=== PATIENT | male | born 1985 | race Caucasian/White ===

== ENCOUNTER 2016-05-27 00:04 | Emergency (ER) | payer OTHER ==
[2016-05-27 00:16] VITALS: RESP 16; TEMP 98
--- NOTE | 2016-05-27 00:31 | ED ---
General Adult HPI - General Chief complaint: Upper Respiratory Infection Stated complaint: poss pneumonia Time Seen by Provider: 05/27/16 00:18 Source: patient, RN notes reviewed Mode of arrival: ambulatory - History of Present Illness Initial comments: 31-year-old male presents to emergency room chief complaint of cough cold runny nose like symptoms. Patient states she's been sick for the past few days. Patient states he has been working longer hours at work. Patient states the whole family was sick for about one week ago. Patient states that he has had pneumonia in the past starting to feel that way. Patient states he does have a little better shortness of breath and continues to have a productive cough with yellow sputum. Patient states he is not currently having any other symptoms. Patient denies any significant health history. Patient does admit to using a vaporized nicotine substances.Patient denies any recent fever, chills, chest pain, back pain, abdominal pain, nausea vomiting, numbness or tingling, dysuria or hematuria, constipation or diarrhea, headaches or visual changes, or any other current symptoms. - Related Data Previous Rx's Medication Instructions Recorded predniSONE 50 mg PO DAILY #5 tab 05/27/16 Review of Systems ROS Statement: Those systems with pertinent positive or pertinent negative responses have been documented in the HPI. ROS Other: All systems not noted in ROS Statement are negative. Past Medical History Past Medical History: No Reported History History of Any Multi-Drug Resistant Organisms: None Reported Past Surgical History: No Surgical Hx Reported Past Psychological History: No Psychological Hx Reported Smoking Status: Former smoker Past Alcohol Use History: Occasional Past Drug Use History: None Reported General Exam - General Exam Comments Initial Comments: General exam: Alert, active, comfortable in no apparent distress Head: Normocephalic Eyes: Normal reaction of pupils, equal size, normal range of extraocular motion Ears: normal external ear canals, pink tympanic membranes with normal cone of light Nose: clear with pink turbinates Throat: no erythema or exudates with normal sized tonsils Neck: no masses, no nuchal rigidity Chest: no chest wall deformity Lungs: equal air entry with no crackles or wheeze CVS: S1 and S2 normal with no audible mumurs, regular rhythm Abdomen: no hepatosplenomegaly, normal bowel sounds, no guarding or rigidity Spine: no scoliosis or deformity Skin: no rashes Neurological: No focal deficits, tone is normal in all 4 extremities Course Vital Signs 05/27/16 00:12 Temperature 98 F Pulse Rate 71 Respiratory 16 Rate Blood Pressure 149/74 O2 Sat by Pulse 99 Oximetry Medical Decision Making - Medical Decision Making 31-year-old male presents emergency Department with a chief complaint of cough cold runny nose like symptoms. This time chest x-ray shows no sign of pneumonia patient is negative informed. Stent patient's of rub respiratory infection. The stools patient steroids. We discussed return parameters and follow-up. Patient stated that he understood all questions were answered. He' ll be discharged. - Lab Data Lab Results 05/27/16 Range/Units 00:37 Influenza Type A RNA Not Detected (Not Detectd) Influenza Type B (PCR) Not Detected (Not Detectd) - Radiology Data Radiology results: report reviewed, image reviewed Disposition Clinical Impression: Upper respiratory infection Disposition: HOME SELF-CARE Condition: Stable Instructions: Upper Respiratory Infection (ED) Additional Instructions: Please use medication as discussed. Please follow up with family doctor if symptoms have not improved over the next two days. Please return to the emergency room if your symptoms increase or worsen or for any other concerns. Prescriptions: predniSONE 50 mg PO DAILY #5 tab Referrals: Latrice Locke MD [STAFF PHYSICIAN] - 1-2 days Time of Disposition: 01:19
--- NOTE | 2016-05-27 01:13 | XR ---
Chest Radiograph one view Comparison: None Available Findings: Heart size and mediastinal structures are within normal limits. Lungs are clear , No evidence of pleural disease or effusion. IMPRESSION: No evidence of active chest disease.
[2016-05-27] MEDS ORDERED: predniSONE 50 MG TAB PO STA (01:19)
[2016-05-27 01:26] VITALS: BP 128/76; PULSE 74
== END 2016-05-27 01:25 | disposition home or self-care (01) ==
LOC: EC 00:04
DX: J06.9 Acute upper respiratory infection, unspecified (principal); Z87.891 Personal history of nicotine dependence; Z87.01 Personal history of pneumonia (recurrent)
CPT/HCPCS: 87502; 71020; 99283; J7512

== ENCOUNTER → 2019-05-16 | Outpatient (CLI) | payer OTHER ==
--- NOTE | 2019-05-16 22:39 | ECHOS ---
STRESS ECHOCARDIOGRAM LUMASON: @@ Vial INDICATIONS: The patient is referred for exercise stress echo, he has chest pain. MEDICATIONS: None. BASELINE HEART RATE: 58 beats per minute. BASELINE BLOOD PRESSURE: 127/92 MAXIMUM HEART RATE: 165 MAXIMUM BLOOD PRESSURE: 172/69 85% MPHR: 160 100% MPHR: 188 METS: 12.1 MAXIMUM STAGE REACHED: 4 TOTAL EXERCISE TIME: 10.5 minutes. CLINICAL INFORMATION: Baseline heart rate 58 beats per minute. Baseline blood pressure 127/92 mmHg. Baseline 12-lead ECG showed normal sinus rhythm with normal cardiac intervals. The patient exercised on a Jhonny protocol for 10.5 minutes, achieving a peak heart rate of 165 beats per minute. There was no ECG evidence for ischemia. No arrhythmias were noted. Baseline 2D echo images showed normal LV size and systolic function without segmental wall motion abnormalities. At peak exercise, there was augmentation of overall LV contractility without development of any wall motion abnormalities. At recovery, regional global LV systolic function remained normal. IMPRESSION: Good exercise capacity. No ECG or echocardiographic evidence for ischemia. MMODL / IJN: [id number] /
== END | disposition home or self-care (01) ==
LOC: RADNMMAIN 09:46
PROVIDERS: ATTEND Family Medicine
DX: R07.89 Other chest pain (principal)
CPT/HCPCS: 93351

== ENCOUNTER 2019-09-25 03:55 | Emergency (ER) | payer BC, OTHER ==
[2019-09-25 04:04] VITALS: BP 150/97; PULSE 68; RESP 18; TEMP 98.5
[2019-09-25] MEDS ORDERED: FUROSEMIDE 40 MG TAB PO STA (04:35)
[2019-09-25] MEDS ORDERED: DEXAMETHASONE 4 MG TAB PO STA (04:35)
[2019-09-25] MEDS ORDERED: IBUPROFEN 600 MG TAB PO STA (04:35)
[2019-09-25] MEDS ORDERED: IBUPROFEN 600 MG STARTER PACK 4 TAB BTL PO STA (04:35)
[2019-09-25] MEDS ORDERED: CEPHALEXIN 500 MG CAP PO STA (04:35)
[2019-09-25] MEDS ORDERED: CEPHALEXIN 500MG STARTER PACK 4 CAP BTL PO STA (04:35)
--- NOTE | 2019-09-25 04:38 | ED ---
Extremity Problem HPI - General Chief complaint: Extremity Problem,Nontraumatic Stated complaint: ankle pain Time Seen by Provider: 09/25/19 04:12 Source: patient, RN notes reviewed (7), old records reviewed Mode of arrival: ambulatory Limitations: no limitations - History of Present Illness Initial comments: This is a 34-year-old male to the ER for evaluation patient since of bilateral lower extremity anterior foot cellulitis secondary some meza significant swelling of lower extremity. No fevers. No other complaints MD Complaint: extremity pain, extremity swelling, other (bilateral sunburn feet) Location: left, right, other (feet) Radiation: proximal Severity scale (1-10): 7 Quality: burning, aching Consistency: constant Improves with: nothing Worsens with: nothing Associated Symptoms: denies other symptoms - Related Data Previous Rx's Medication Instructions Recorded predniSONE 50 mg PO DAILY #5 tab 05/27/16 Cephalexin [Keflex] 500 mg PO Q8HR 7 Days #21 cap 09/25/19 Ibuprofen [Motrin] 600 mg PO Q8HR #60 tab 09/25/19 Allergies Allergy/AdvReac Type Severity Reaction Status Date / Time No Known Allergies Allergy Verified 09/25/19 04:04 Review of Systems ROS Statement: Those systems with pertinent positive or pertinent negative responses have been documented in the HPI. ROS Other: All systems not noted in ROS Statement are negative. Past Medical History Past Medical History: No Reported History History of Any Multi-Drug Resistant Organisms: None Reported Past Surgical History: No Surgical Hx Reported Past Psychological History: No Psychological Hx Reported Smoking Status: Current every day smoker Past Alcohol Use History: Occasional Past Drug Use History: None Reported General Exam - General Exam Comments Initial Comments: Bilateral foot swelling and tenderness, edema and cellulitis Limitations: no limitations General appearance: alert, in no apparent distress Head exam: Present: atraumatic, normocephalic, normal inspection Eye exam: Present: normal appearance, PERRL, EOMI. Absent: scleral icterus, conjunctival injection, periorbital swelling ENT exam: Present: normal exam, mucous membranes moist Neck exam: Present: normal inspection. Absent: tenderness, meningismus, lymphadenopathy Respiratory exam: Present: normal lung sounds bilaterally. Absent: respiratory distress, wheezes, rales, rhonchi, stridor Cardiovascular Exam: Present: regular rate, normal rhythm, normal heart sounds. Absent: systolic murmur, diastolic murmur, rubs, gallop, clicks GI/Abdominal exam: Present: soft, normal bowel sounds. Absent: distended, tenderness, guarding, rebound, rigid Extremities exam: Present: normal inspection, full ROM, normal capillary refill. Absent: tenderness, pedal edema, joint swelling, calf tenderness Back exam: Present: normal inspection Neurological exam: Present: alert, oriented X3, CN II-XII intact Psychiatric exam: Present: normal affect, normal mood Skin exam: Present: warm, dry, intact, normal color. Absent: rash Course Vital Signs 09/25/19 04:02 Temperature 98.5 F Pulse Rate 68 Respiratory 18 Rate Blood Pressure 150/97 O2 Sat by Pulse 99 Oximetry - Reevaluation(s) Reevaluation #1: Medical record is reviewed symptomatically improved here in the ER Medical Decision Making - Medical Decision Making 34 male with sunburn to lower extremity, secondary some burning with blistering surrounding cellulitis and edema. She given appropriate treatment for discharge home Disposition Clinical Impression: Edema of both feet, Sunburn of second degree, Cellulitis Narrative: BL foot cellulitis Disposition: HOME SELF-CARE Condition: Good Instructions (If sedation given, give patient instructions): Cellulitis (ED), Sunburn (ED), Leg Edema (ED) Prescriptions: Cephalexin [Keflex] 500 mg PO Q8HR 7 Days #21 cap Ibuprofen [Motrin] 600 mg PO Q8HR #60 tab Is patient prescribed a controlled substance at d/c from ED?: No Referrals: Tesfaye Turner DO [Primary Care Provider] - 1-2 days
== END 2019-09-25 04:59 | disposition home or self-care (01) ==
LOC: EC 03:55
DX: L03.116 Cellulitis of left lower limb (principal); L03.115 Cellulitis of right lower limb; L55.1 Sunburn of second degree; F17.200 Nicotine dependence, unspecified, uncomplicated
CPT/HCPCS: 99283; J8540

== ENCOUNTER → 2021-10-27 | Outpatient (CLI) | payer BC ==
--- NOTE | 2021-10-27 13:10 | US ---
EXAMINATION TYPE: US thyroid st tissue head/neck DATE OF EXAM: 10/27/2021 COMPARISON: NONE CLINICAL HISTORY: 36-year-old male E04.1 THYROID NODULE. Nodule. Fullness on exam, hoarseness per ord er. GLAND SIZE: Right Lobe: 5.2 x 1.7 x 1.6 cm Overall Parenchyma: slightly heterogenous Left Lobe: 5.4 x 1.6 x 1.4 cm Overall Parenchyma: slightly heterogeneous Isthmus Thickness: 0.21 cm NODULES RIGHT: # of nodules measured on right: 0 LEFT: # of nodules measured on left: 1 1. 0.6 X 0.5 x 0.5 cm, lower lateral, mixed cystic and solid nodule, which is as wide as it is tall , with smooth margins, without echogenic foci. Prior size: No prior ISTHMUS: # of nodules measured in the isthmus: 0 Bilateral neck scanned, Borderline sized lymph node along the right side of the neck measuring 1.6 x 1.4 x 0.3 cm. Additional borderline sized node along the left side of the neck measuring 1.6 x 1.0 x 0.4 cm. IMPRESSION: 1. Mild thyromegaly. 2. A TR2 cystic 6 mm nodule in the left lobe. No suspicious dominant solid nodule. 3. A couple borderline sized lymph nodes in the neck measuring up to 1.4 cm short axis. Probably reac tive/post inflammatory. Consider 3 month follow-up to reassess.
== END | disposition home or self-care (01) ==
LOC: RADUSWWP 06:58
PROVIDERS: ATTEND Otolaryngology
DX: E04.1 Nontoxic single thyroid nodule (principal)
CPT/HCPCS: 76536

== ENCOUNTER 2022-01-05 06:21 | Day surgery (SDC) | payer BC ==
[2022-01-04 08:57] VITALS: BMI 27.1
[~2022-01-05 06:21] MED LIST: DEXAMETHASONE SOD PHOSPHATE 4 MG/ML 1 ML VIAL IV ONE; DEXAMETHASONE SOD PHOSPHATE 4 MG/ML 1 ML VIAL IV PRN; FAMOTIDINE 20 MG/2 ML VIAL IV PRN; LIDOCAINE 1% (10MG/ML) FOR IV START INTRADERMA PRN; MIDAZOLAM 2 MG/2 ML VIAL IV PRN; ONDANSETRON 4 MG/2 ML VIAL IVP ONE; ONDANSETRON 4 MG/2 ML VIAL IVP PRN
[2022-01-05] MEDS ORDERED: HYDROmorphone 0.5 MG/0.5 ML SYRINGE IVP PRN (07:00)
[2022-01-05] MEDS: LACTATED RINGERS 1,000 ML IV SCH ×2 (07:10→07:26)
[2022-01-05] MEDS ORDERED: SUCCINYLCHOLINE CHLORIDE 200 MG/10 ML VIAL IV ONE (07:24)
[2022-01-05] MEDS ORDERED: DEXAMETHASONE SOD PHOS (MDV) 100 MG/10 ML VIAL ONE (07:24)
[2022-01-05] MEDS ORDERED: fentaNYL (PF) 50 MCG/ML 2 ML AMP ONE (07:24)
[2022-01-05] MEDS ORDERED: LIDOCAINE 2% INJ 20 MG/ML (2 ML VIAL) ONE (07:24)
[2022-01-05] MEDS ORDERED: PROPOFOL 10 MG/ML 20 ML VIAL IV ONE (07:24)
--- NOTE | 2022-01-05 07:56 | P.OP ---
Date of Procedure: 01/05/22 Preoperative Diagnosis: Right vocal cord lesion Postoperative Diagnosis: Same Procedure(s) Performed: Microlaryngoscopy with excision right vocal cord lesion Anesthesia: KEONA Surgeon: Pilo Mcfarland Estimated Blood Loss (ml): 1 Pathology: other (Right vocal cord lesion) Condition: stable Disposition: PACU Indications for Procedure: 36-year-old white male whose had difficulties with chronic hoarseness. He had a video stroboscopy which showed a cystic appearing right posterior vocal cord lesion Operative Findings: Smooth rounded approximate 5 mm partially cystic brown lesion right mid true vocal cord more consistent in location with a vocal cord nodule Description of Procedure: The patient was brought in the operative suite and placed in a supine position. The patient underwent induction of general anesthesia with oral endotracheal intubation without difficulty. The patient was prepped and draped in the usual aseptic fashion. Tooth guard was placed and direct laryngoscopy was performed with systematic evaluation of the base of tongue vallecula both piriform sinuses post cricoid area and endolarynx. With the larynx in good visualization the laryngoscope was placed in suspension and the Zeiss microscope was brought into position to evaluate the larynx. The lesion was grasped with a biopsy cup forceps and excised from the underlying vocal cord grossly entirely with microscissors and microdissection technique. The lamina propria was left intact. This was excised grossly entirely. Hemostasis was gained spontaneously. No other lesions were noted including on the left vocal cord. The laryngoscope and tooth guard were removed. The patient was allowed to emerge from anesthesia having tolerated procedure well was extubated in the operating suite and transferred to postop recovery area in satisfactory condition.
[2022-01-05 08:12] VITALS: RESP 16; TEMP 97.2
[2022-01-05 09:19] VITALS: BP 126/81; PULSE 54
== END 2022-01-05 09:37 | disposition home or self-care (01) ==
LOC: OR 06:21
PROVIDERS: ATTEND Otolaryngology
DX: J38.2 Nodules of vocal cords (principal); Z87.891 Personal history of nicotine dependence; F32.A Depression, unspecified; Z01.818 Encounter for other preprocedural examination
CPT/HCPCS: 88305; 31541; J2250; J0330; J1100 ×2; J2405; J3010; J2704; J2001